=== PATIENT | male | born 1960 | race Hispanic/Latino ===

== ENCOUNTER 2016-08-17 13:22 | Emergency (ER) | payer OTHER ==
[2016-08-17] MEDS ORDERED: SODIUM CHLORIDE 0.9% 1,000 ML ONE (15:29)
[2016-08-17] MEDS ORDERED: MORPHINE 4 MG/ML SYR ONE (15:29)
[2016-08-17] MEDS ORDERED: ONDANSETRON 4 MG VIAL ONE (15:29)
[2016-08-17] MEDS ORDERED: DILAUDID 1 MG/ML AMP ONE ×3 (18:20→21:08)
== END 2016-08-17 22:25 | disposition other institution (70) ==
LOC: ER 13:22
CPT/HCPCS: 36415; 71260; 74177; 80053; 81001; 82553; 83690; 84484; 85025; 87077; 87088; 87186; 93005; 96361; 96374; 96375; 96376